=== PATIENT | male | born 1995 | race Caucasian/White ===

== ENCOUNTER 2024-01-22 14:15 | Emergency (ER) | payer OTHER ==
[2024-01-22 15:19] LABS: CORONAVIRUS COVID-19 NAA POSITIVE (NEGATIVE); INFLUENZA A NAA NEGATIVE (NEGATIVE); INFLUENZA B NAA NEGATIVE (NEGATIVE)
== END 2024-01-22 14:51 | disposition home or self-care (01) ==
LOC: MW.ED 14:15
DX: J06.9 Acute upper respiratory infection, unspecified (principal); B97.89 Other viral agents as the cause of diseases classified elsewhere; Z75.8 Other problems related to medical facilities and other health care; Z88.0 Allergy status to penicillin; Z79.899 Other long term (current) drug therapy
CPT/HCPCS: 0240U; 99283; 99284